=== PATIENT | female | born 1980 | race Caucasian/White ===

== ENCOUNTER 2018-07-09 07:30 | Inpatient (IN) | payer MEDICAID ==
[~2018-07-09] VITALS: Ht 160 cm; Wt 129.4 kg
[2018-07-09] MEDS: LACTATED RINGER'S 1,000 ML IV SCH ×2 (08:20→16:20)
[2018-07-09] MEDS ORDERED: OXYTOCIN 30 UNITS/LR 500 ML IV SCH ×2 (08:30→15:33)
[2018-07-09] MEDS ORDERED: OXYTOCIN 30 UNITS/LR 500 ML IV PRN ×2 (08:30→16:00)
[2018-07-09] MEDS ORDERED: CARBOPROST 250 MCG INJ IM PRN ×2 (08:30→16:00)
[2018-07-09] MEDS ORDERED: METHYLERGONOVINE 0.2 MG INJ IM PRN ×2 (08:30→16:00)
[2018-07-09] MEDS ORDERED: MISOPROSTOL 200 MCG TAB PR PRN ×2 (08:30→16:00)
[2018-07-09] MEDS ORDERED: CEFAZOLIN 2 GM/50 ML (PMX) 50 ML IVPB SCH (08:30)
[2018-07-09 08:32] VITALS: Ht 160 cm; Wt 129.4 kg
[2018-07-09] MEDS ORDERED: CEFAZOLIN 3 GM in DEXTROSE 5% 100 ML IV SCH (09:00)
[2018-07-09] MEDS ORDERED: morphine SULFATE/PF (10 MG/10 ML) INJ ONE ×2 (09:12→11:20)
[2018-07-09] MEDS ORDERED: FENTAnyl 50 MCG/ML VIAL ONE (09:12)
--- NOTE | 2018-07-09 09:29 | PREAC ---
Date/Time of Note Date/Time of Note DATE: 07/09/18 TIME: 09:28 Anesthesia Eval and Record Evaluation Time Pre-Procedure Interview DATE: 07/09/18 TIME: 09:28 Age 37 Sex female NPO: 8 hrs Preoperative diagnosis iup at 38 weeks Planned procedure repeat c section Past Medical History Past Medical History: Includes GI: Obesity Surgery & Anesthesia Issues No known issue Meds Anticoagulation: No Beta Marcelina within 24 hr: No Reason Beta Marcelina not given: Pt. not on B-Marcelina Current Medications Lactated Ringer's 1,000 ml @ 125 mls/hr Q8H IV ; Start 07/09/18 at 08:20 Oxytocin/Lactated Ringer's 500 ml @ 125 mls/hr POST IV ; Start 07/09/18 at 08:30 Oxytocin/Lactated Ringer's 500 ml @ 0 mls/hr ONCE PRN IV .VAGINAL BLEEDING; Start 07/09/18 at 08:30 Methylergonovine Maleate (Methergine) 0.2 mg ONCE PRN IM .VAGINAL BLEEDING; S tart 07/09/18 at 08:30 Carboprost Tromethamine (Hemabate) 250 mcg ONCE PRN IM .VAGINAL BLEEDING; Start 07/09/18 at 08:30 Misoprostol (Cytotec) 1,000 mcg ONCE PRN LA .VAGINAL BLEEDING; Start 07/09/18 at 08:30 Cefazolin Sodium 3 gm/Dextrose 100 ml @ 100 mls/hr ONCE IV ; Start 07/09/18 at 09:00 Meds reviewed: Yes Allergies Coded Allergies: No Known Allergy (Unverified , 07/09/18) Allergies Reviewed: Yes Labs/Studies Labs Reviewed: Reviewed by anesthesiologist Result Diagram: 07/09/18 0900 Laboratory Tests 07/09/18 09:00 test: Positive Pre-procedure Exam Airway: Adequate mouth opening, Adequate thyromental dist Mallampati: Mallampati II Teeth: Normal Lung: Normal Heart: Normal ASA Physical Status ASA physical status: 2 Emergency: None Planned Anesthetic Neuraxial: Spinal Planned Pain Management Sub-arachniod narcotics, Parenteral pain med Pre-operative Attestations Prior to commencing anesthesia and surgery, the patient was re-evaluated, there was verification of: *The patient's identity *The results of appropriate recent lab work and preoperative vital signs *The above evaluation not changing prior to induction *Anesthetic plan, risk benefits, alternative and complications discussed with patient/family; questions answered; patient/family understands, accepts and wishes to proceed. JOSE MANUEL CARSON Jul 09, 2018 09:29
[2018-07-09] MEDS ORDERED: ONDANSETRON 4 MG INJ ONE ×2 (09:58→11:21)
[2018-07-09] MEDS ORDERED: PHENYLephrine (100 MCG/ML) 10ML SYG ONE (09:58)
[2018-07-09] MEDS ORDERED: DEXAMETHASONE 4 MG/ML 1 ML INJ ONE ×2 (09:58→11:20)
--- NOTE | 2018-07-09 10:37 | HP ---
Date/Time of Note Date/Time of Note DATE: 07/09/18 TIME: 10:35 OB - History Hx of Present : 2 Para: 1 Care: Good Care Ultrasounds: Normal mid trimester US Obstetrical Complications: None Medical Complications: None Past Family/Social History * Past Medical, Surgical, Family and Obstetric Histories reviewed from chart. OB Admission Exam Physical Exam HEENT: WNL Heart: Rhythm Normal Lungs: Clear, Equal Abdomen: WNL Extremities: Normal Reflexes: Normal Cervical Dilatation: None Effacement: 0% Station: Ballotable Membranes: Intact Heart Rate: 130's Accelerations: Accelerations Present Decelerations: No Decelerations Varibility: Moderate Contractions on Admission: None Last 72 hours Lab Results CBC & BMP 07/09/18 09:00 OB Assessment/Plan Reason for admission: section Plan: Section ALFREDO MEJIAS MD Jul 09, 2018 10:37
[2018-07-09] MEDS ORDERED: DIPHENHYDRAMINE 50 MG INJ IV PRN (12:00)
[2018-07-09] MEDS ORDERED: ONDANSETRON 4 MG INJ IV PRN (12:00)
[2018-07-09] MEDS ORDERED: ZOLPIDEM 5 MG TAB PO PRN (12:00)
[2018-07-09] MEDS ORDERED: NALOXONE (0.4 MG/ML) INJ IV PRN (12:00)
[2018-07-09] MEDS ORDERED: HYDROmorphONE 0.5 MG/0.5 ML SYG IV PRN ×2 (12:00)
--- NOTE | 2018-07-09 12:40 | OPR ---
Operative Report Planned Procedure Procedure date Jul 09, 2018 Procedure(s) repeat c/s Performed by see signature line Leaf Conditioner: JULI CHING MD Pre-procedure diagnosis term for repeat c/s [id number] Anesthesia Type: [id number] spinal Post-Procedure Post-procedure diagnosis repeat c/s Findings Live Baby [], Apgars [] and [], weight [], position [], [] presentation []cord. Estimated Blood Loss: 600 - 700 mls Specimen(s) none Grafts/Implant(s) none Complication(s) none Pt Condition post procedure: stable Disposition: PACU Procedure Description Under satisfactory spinal [] anesthesia, the patient was prepped and draped and placed in a supine position, tilted to the left. Pfannenstiel incision was made, carried through the subcutaneous tissue. Bleeders brought under control with electrocautery. Fascia incised to the length of the incision. Rectus muscles from the fascia, divided midline. Peritoneum exposed, entered through a transverse incision. Exploration of abdomen revealed gravid uterus. Bladder flap was developed. Transverse incision was made in the lower segment of the uterus. Amniotic sac ruptured. [clear ] amniotic fluid noted. [] Nasal oropharyngeal suction was performed. The baby was handed to the team for immediate attention. The placenta was delivered manually intact. Uterine cavity was cleaned with wet sponge and drainage established. Uterus closed in 2 layers using [] in continuous fashion. Peritoneal cavity irrigated with warm saline. Sponge, needle and instrument count reported to be correct. Abdominal peritoneum closed with one monocryl[] continuously. Rectus muscle approximated with []. Fascia closed with one monocryl [], and skin closed with humberto. Estimated blood loss [700]mL. ALFREDO MEJIAS MD Jul 09, 2018 12:40
--- NOTE | 2018-07-09 13:29 | PAC ---
Date/Time of Note Date/Time of Note DATE: 07/09/18 TIME: 13:28 Post-Anesthesia Notes Post-Anesthesia Note Last documented vital signs temp 97.7 bp 112/69, O2 sat 98% Activity: WNL Respiratory function: WNL Cardiovascular function: WNL Mental status: Baseline Pain reasonably controlled: Yes Hydration appropriate: Yes Nausea/Vomiting absent: Yes JOSE MANUEL CARSON Jul 09, 2018 13:29
[2018-07-09 14:30] VITALS: BP 132/70; PULSE 68; RESP 18
[2018-07-09 15:09] VITALS: BP 128/71; PULSE 85; RESP 18
[2018-07-09 15:10] VITALS: BP 128/71; PULSE 85; RESP 17
[2018-07-09] MEDS ORDERED: LACTATED RINGER'S 1,000 ML IV SCH (15:33)
[2018-07-09] MEDS ORDERED: NA PHOSPHATE/BIPHOS 133 ML ENEMA PR PRN (16:00)
[2018-07-09] MEDS ORDERED: LANOLIN HPA 1 PKT TOP PRN (16:00)
[2018-07-09] MEDS ORDERED: NACL 0.9% 3 ML SYG IV SCH (16:00)
[2018-07-09] MEDS: KETOROLAC 30 MG INJ IV PRN (16:37)
[2018-07-09 19:45] VITALS: BP 110/52; PULSE 61; RESP 18
[2018-07-10] MEDS: LACTATED RINGER'S 1,000 ML IV SCH ×3 (00:20→16:20)
[2018-07-10] MEDS: KETOROLAC 30 MG INJ IV PRN ×2 (03:59→10:17)
[2018-07-10 04:15] VITALS: BP 99/52; PULSE 75; RESP 18
[2018-07-10 08:00] VITALS: BP 106/55; PULSE 65; RESP 16
[2018-07-10] MEDS: HYDROCODONE/APAP (5/325) TAB PO PRN (13:35)
[2018-07-10] MEDS: IBUPROFEN 800 MG TAB PO SCH ×2 (14:00→17:35)
[2018-07-10 16:05] VITALS: BP 97/43; PULSE 74; RESP 18
--- NOTE | 2018-07-10 18:19 | QN ---
Documentation Comment doing well vss abd soft OOB today ALFREDO MEJIAS MD Jul 10, 2018 18:19
--- NOTE | 2018-07-10 18:20 | DS ---
Date/Time of Note Date/Time of Note DATE: 07/10/18 TIME: 18:19 Discharge Summary Admission/Discharge Info Admit Date/Time Jul 09, 2018 at 08:16 Discharge Date/Time Discharge Diagnosis term Patient Condition: Stable Hospital Course unremarkable Primary Care Provider Care Physician No Primary Pending Labs Laboratory Tests Test 07/10/18 06:29 07/10/18 09:26 Lab Scanned Report [facility] [id number] White Blood Count 10.1 10^3/ul (4.8-10.8) Red Blood Count 3.66 10^6/ul (4.20-5.40) Hemoglobin 10.6 g/dl (12.0-16.0) Hematocrit 32.4 % (37.0-47.0) Mean Corpuscular Volume 88.5 fl (82.0-101.0) Mean Corpuscular Hemoglobin 29.0 pg (29.0-33.0) Mean Corpuscular 32.7 g/dl (32.0-37.0) Hemoglobin Concent Red Cell Distribution Width 13.2 % (11.5-14.5) Platelet Count 225 10^3/UL (140-415) Mean Platelet Volume 9.2 fl (7.4-10.4) Immature Granulocytes % 0.600 % (0.001-0.429) Neutrophils % 62.9 % (39.0-77.0) Lymphocytes % 26.2 % (15.0-51.0) Monocytes % 9.3 % (0.0-11.0) Eosinophils % 0.9 % (0.0-7.0) Basophils % 0.1 % (0.0-2.0) Nucleated Red Blood Cells % 0.0 /100WBC (0.0-0.0) Immature Granulocytes # 0.060 10^3/ul (0.0-0.031) Neutrophils # 6.4 10^3/ul (1.6-7.5) Lymphocytes # 2.7 10^3/ul (0.8-2.9) Monocytes # 0.9 10^3/ul (0.3-0.9) Eosinophils # 0.1 10^3/ul (0.0-0.5) Basophils # 0.0 10^3/ul (0.0-0.1) Nucleated Red Blood Cells # 0.0 10^3/ul (0.0-0.0) ALFREDO MEJIAS MD Jul 10, 2018 18:20
[2018-07-10 20:15] VITALS: BP 124/62; PULSE 76; RESP 18
[2018-07-11] MEDS: LACTATED RINGER'S 1,000 ML IV SCH (01:20)
[2018-07-11 04:00] VITALS: BP 123/60; PULSE 76; RESP 19
[2018-07-11] MEDS: IBUPROFEN 800 MG TAB PO SCH ×3 (05:44→21:24)
[2018-07-11 08:00] VITALS: BP 138/87; PULSE 73; RESP 18
--- NOTE | 2018-07-11 10:04 | QN ---
Documentation Comment flatus pos but no b,m yet no complaints Vss afebrile abdomen soft wound dry lochia min calf neg for tendernss A stable post c/s #2 P d/s home in am JULI CHING MD Jul 11, 2018 10:04
[2018-07-11] MEDS: HYDROCODONE/APAP (5/325) TAB PO PRN (10:40)
[2018-07-11 16:34] VITALS: BP 139/64; PULSE 76; RESP 18
[2018-07-11 19:30] VITALS: BP 136/67; PULSE 74; RESP 18
[2018-07-12 04:00] VITALS: BP 116/62; PULSE 75; RESP 16
[2018-07-12] MEDS: IBUPROFEN 800 MG TAB PO SCH ×3 (06:16→22:09)
[2018-07-12 08:00] VITALS: BP 194/93; PULSE 75; RESP 18
[2018-07-12] MEDS ORDERED: DIPHTH/TET/ACEL PERTUSS (ADULT) 0.5 ML VIAL IM* ONE (09:00)
[2018-07-12] MEDS ORDERED: MEASLES,MUMPS,RUBELLA VACCINE INJ SC* ONE (09:00)
[2018-07-12] MEDS: HYDROCODONE/APAP (5/325) TAB PO PRN (12:40)
--- NOTE | 2018-07-12 13:31 | QN ---
Documentation Comment PoD# 3is stable afebrile tolerates diet No Vb +BM +voids VS stable Gen NAD Abd soft NT ND Incisions intact Genitalia No blood at perineum --->Discharge home FAUSTINO RENEE M.D. Jul 12, 2018 13:31
--- NOTE | 2018-07-12 13:32 | DS ---
Date/Time of Note Date/Time of Note DATE: 07/12/18 TIME: 13:31 Discharge Summary Admission/Discharge Info Admit Date/Time Jul 09, 2018 at 08:16 Discharge Date/Time 07/12/2018 Discharge Diagnosis term Patient Condition: Good Hospital Course uneventful Primary Care Provider Care Physician FAUSTINO Flores M.D. Jul 12, 2018 13:32
[2018-07-12 14:15] VITALS: BP 159/85; PULSE 76
[2018-07-12 15:20] VITALS: BP 140/72; PULSE 65; RESP 18
[2018-07-12 16:20] VITALS: BP 149/88; PULSE 61; RESP 18
[2018-07-12 19:40] VITALS: BP 132/82; PULSE 70
[2018-07-13] VITALS: BP 136/84; PULSE 72; RESP 16
[2018-07-13 04:30] VITALS: BP 128/65; PULSE 75; RESP 16
[2018-07-13] MEDS: IBUPROFEN 800 MG TAB PO SCH ×2 (06:17→14:10)
[2018-07-13 08:30] VITALS: BP 143/75; RESP 18
[2018-07-13 11:30] VITALS: BP 105/64; RESP 18
[2018-07-13 12:15] VITALS: BP 138/78; RESP 18
== END 2018-07-13 16:00 | disposition home or self-care (01) | DRG 788 ==
LOC: L-D 08:16 → PP1 14:55
PROVIDERS: ADMIT Obstetrics & Gynecology; ATTEND Obstetrics & Gynecology
PROC: 10D00Z1 Extraction of Products of Conception, Low, Open Approach (ICD-10-PCS; principal; 2018-07-09 07:30)
DX: O34.211 Maternal care for low transverse scar from previous cesarean delivery (principal); Z3A.39 39 weeks gestation of pregnancy; Z37.0 Single live birth
CPT/HCPCS: 80053; 81001; 84560; 85025; 85362; 85384; 85610; 85730; 86592; 86850; 86900; 86901; 87340; 90686; 90715; 99464; J0690; J1100; J1885; J2274; J2370; J2405; J2590; J3010; J7120